=== PATIENT | male | born 1960 | race Caucasian/White ===

== ENCOUNTER 2017-07-11 13:38 | Emergency (ER) | payer OTHER ==
[2017-07-11] MEDS: 0.9 % SODIUM CHLORIDE 1,000 ML IV SCH (15:00)
[2017-07-11] MEDS: ONDANSETRON HCL/PF 4 MG/ 2ML VIAL IVP ONE (15:02)
[2017-07-11] MEDS: KETOROLAC TROMETHAMINE 30 MG/1ML VIAL IVP ONE (15:04)
[2017-07-11] MEDS ORDERED: 0.9 % SODIUM CHLORIDE 1,000 ML IV ONE (15:11)
[2017-07-11 15:17] LABS: BASOPHILS % 0.5 (0.0-1.5); EOSINOPHILS % 1.2 % (0.0-6.8); MEAN CORPUSCULAR HEMOGLOBIN 33.5 pg (28.0-34.0); MEAN CORPUSCULAR VOLUME 96.3 fl (80.0-100.0); MONOCYTES % 3.7 % (0.0-11.0); NEUTROPHILS # 8.2 # k/uL (1.4-7.7)
[2017-07-11 15:45] LABS: eGFR (African) > 60; eGFR (Non-African) > 60
--- NOTE | 2017-07-11 16:49 | ED Physician Documentation ---
Fall - HISTORIAN Historian: patient - HPI Stated Complaint: fall Chief Complaint: Fall Additional Information: hit mid back on bathtub Onset: just prior to arrival Where: home Context: slipped r: moderate Associated Symptoms:: no loss of consciousness Location of Pain/Injury: mid back Injury to Right Extremity: none Injury to Left Extremity: none Front/Back of Body, Lg ([place]): 1 - pain Further Comments: no - ROS CONST: no problems NEURO: denies: dizziness, anxiety, depression MS/SKIN/LYMPH: denies: weakness, numbness, neck pain, back pain, ankle swelling , leg swelling, rash EYES/ENT: none CVS/RESP: none GI/: nausea, vomiting. denies: problems urinating - PAST HX Past History: COPD Immunizations: referred to PCP Allergies/Adverse Reactions: Allergies Allergy/AdvReac Type Severity Reaction Status Date / Time No Known Drug Allergies Allergy Verified 07/11/17 15:11 Home Medications: Ambulatory Orders Medication Instructions Recorded Aspirin [Adult Low Dose Aspirin EC] 81 mg PO DAILY 07/11/17 - SOCIAL HX Smoking History: cigarettes Alcohol Use: none Drug Use: none - FAMILY HX Family History: no significant history - VITAL SIGNS Vital Signs: Vital Signs Temp Pulse Resp BP Pulse Ox 99.8 F H 117 H 24 115/88 99 07/11/17 13:38 07/11/17 13:38 07/11/17 13:38 07/11/17 13:38 07/11/17 13:38 - REVIEWED ASSESSMENTS Nursing Assessment Reviewed: Yes Vitals Reviewed: Yes Progress - Results/Orders Results/Orders: cxr, ribs x-ray, cbc, cmp, ua ordered - Progress Progress: pt. given 1 liter NS, 30 mg toradol ivp and zofran 8 mg ivp with resolution of symptoms, pain 0 and nausea 0. Critical Care Note - Critical Care Note Total Time (mins): 0 ED Results Lab/Radiology - Lab Results Lab Results: Lab Results 07/11/17 07/11/17 15:10 15:10 WBC 10.20 K/ul K/ul (4.00-12.00) RBC 5.22 M/ul H M/ul (3.90-5.20) Hgb 17.5 g/dL g/dL (12.0-18.0) Hct 50.3 % % (37.0-53.0) MCV 96.3 fl fl (80.0-100.0) MCH 33.5 pg pg (28.0-34.0) MCHC 34.8 g/dL g/dL (30.0-36.0) RDW 14.3 % % (11.3-14.3) Plt Count 104 K/mm3 L K/mm3 (130-400) Neut % (Auto) 80.8 % H % (39.0-79.0) Lymph % (Auto) 12.7 % L % (16.0-50.0) [place] % (Auto) 3.7 % % (0.0-11.0) Eos % (Auto) 1.2 % % (0.0-6.8) Baso % (Auto) 0.5 (0.0-1.5) Neut # (Auto) 8.2 # k/uL H # k/uL (1.4-7.7) Lymph # (Auto) 1.3 # k/uL # k/uL (0.6-4.0) [place] # (Auto) 0.4 # k/uL # k/uL (0.0-0.9) Eos # (Auto) 0.1 # k/uL # k/uL (0.0-0.6) Baso # (Auto) 0.0 # k/uL # k/uL (0.0-0.5) Reactive Lymphs % 1.1 % % (0.0-5.0) Reactive Lymphs # 0.1 # k/uL # k/uL (0.0-0.8) Sodium 134 mmol/L L mmol/L (136-145) Potassium 3.4 mmol/L L mmol/L (3.5-5.0) Chloride 94 mmol/L L mmol/L (98-110) Carbon Dioxide 25 mmol/L mmol/L (20-32) BUN 23 mg/dL mg/dL (10-26) Creatinine 0.7 mg/dL mg/dL (0.4-1.5) Estimated Creat Clear 123 Est GFR ( Amer) > 60 (60 - ) Est GFR (Non-Af Amer) > 60 (60 - ) Glucose 105 mg/dL H mg/dL (70-99) Calcium 10.5 mg/dL mg/dL (8.5-10.5) Total Bilirubin 0.8 mg/dL mg/dL (0.2-1.2) AST 68 U/L H U/L (0-41) ALT 52 U/L H U/L (0-45) Alkaline Phosphatase 98 U/L U/L (46-116) Total Protein 7.5 g/dL g/dL (6.0-8.5) Albumin 4.7 g/dL g/dL (3.0-5.5) - Radiology Radiology Impressions: cxr, ribs x-ray neg - Orders Orders: ED Orders Category Date Time Status Place IV Lock 1T Care 07/11/17 14:53 Active RIBS BILAT 3 VIEWS [RAD] Stat Exams 07/11/17 Ordered CBC/PLATELET/DIFF Routine Lab 07/11/17 15:10 Completed CMP Routine Lab 07/11/17 15:10 Completed URINALYSIS Routine Lab 07/11/17 14:53 Ordered 0.9 % Sodium Chloride [Normal Saline] 1,000 ml Med 07/11/17 15:00 Ordered IV .Q1H Ketorolac Tromethamine [Toradol] Med 07/11/17 14:53 Discontinued 30 mg IVP NOW ONE Ondansetron HCl/Pf [Zofran 4 mg/2 ml] Med 07/11/17 14:53 Discontinued 8 mg IVP NOW ONE Fall Physical Exam - Physical Exam General Appearance: alert, mild distress Head: non-tender, no swelling, no obvious injury. No: raccoon eyes Neck: non-tender, painless ROM, trachea midline Eye: KELBY, EOMI, lids & conjunct. nml ENT: nml external inspection, no dental injury, no oral injury, airway nml Resp/CVS: chest non-tender, no ecchymosis, breath sounds nml, no resp. 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, reflexes nml Skin: color nml, no rash Back: normal inspection, no CVA tenderness, other (tenderness over lower left posterior ribs and to much less extent right lower posterior ribs) Extremities: atraumatic, pelvis stable, hips non-tender, no pedal edema Joint: joints nml, nml ROM, Nml gait/weight bearing - Jacques Coma Score Eyes Open: Spontaneous Speech: Oriented Motor: Obeys Commands Discharge Clincal Impression: Rib contusion Qualifiers: Encounter type: initial encounter Laterality: left Qualified Code(s): S20.212A - Contusion of left front wall of thorax, initial encounter Referrals: Pedro Pablo Alejandre MD [Primary Care Provider] - 2 Days Home Medications: Ambulatory Orders Aspirin [Adult Low Dose Aspirin EC] 81 mg PO DAILY 07/11/17 Comments: discharged with scripts for parafon forte dsc 500 mg 1 p.o. qid #20 and meloxicam 7.5 mg 1 p.o. bid #10 Condition: Stable Disposition: 01 HOME, SELF-CARE Decision to Admit: NO Decision Time: 16:50
[2017-07-11 18:24] VITALS: BP 138/92
--- NOTE | 2017-07-11 22:55 | Diagnostic Imaging Report ---
GUERO SIMMONS [facility] [address] [facility].[address] [id number] Report Submission Date: Jul 11, 2017 3:52:25 PM CDT Patient Study Name: HARI CABALLERO Date: Jul 11, 2017 3:19:25 PM CDT Modality Type: CR Gender: M Description: CHEST : 60 Institution: [facility] Physician: GUERO SIMMONS Chest and bilateral ribs CLINICAL HISTORY: Fall in the bathtub 1 week ago. Bilateral rib cage pain worse on the left. FINDINGS: Examination of the chest single upright view demonstrates the lungs to be hyperinflated but clear. Cardiovascular and mediastinal silhouettes are within normal limits. Examination of the right and left rib cage in AP, oblique and coned-down views of the lower ribs fails to demonstrate evidence of fracture. There is no pneumothorax. IMPRESSION: Hyperinflation. No fracture. Electronically signed on Jul 11, 2017 3:52:25 PM CDT by: Billy SHETTY
== END 2017-07-11 18:20 | disposition home or self-care (01) ==
LOC: ED 13:38
DX: S20.212A Contusion of left front wall of thorax, initial encounter (principal); W19.XXXA Unspecified fall, initial encounter; Y93.9 Activity, unspecified; Y99.9 Unspecified external cause status
CPT/HCPCS: 71110; 80053; 85025; J1885; J2405; J7030; 96361; 96374; 96375; 99283; S1016